=== PATIENT | male | born 1970 | race Caucasian/White ===

== ENCOUNTER 2016-11-30 16:27 | Observation (INO) | payer BC, OTHER ==
[~2016-11-30] VITALS: Ht 185.4 cm; Wt 145.5 kg
[~2016-11-30 16:27] MED LIST: DVN80125 PO; IBUP-1050 PO; LEVE750T PO; LMC/150 PO
[2016-11-30] MEDS ORDERED: SODIUM CHLORIDE 0.9% 1000ML 1,000 ML IV ONE (16:58)
[2016-11-30] MEDS ORDERED: SODIUM CHLORIDE 0.9% 1000ML 1,000 ML IV STA (16:58)
[2016-11-30] MEDS ORDERED: KETOROLAC TROMETHAMINE 30 MG/ML VIAL IV STA (16:58)
--- NOTE | 2016-11-30 17:04 | EMERGENCY ROOM VISIT NOTE ---
History Report prepared by Cathleen: Stewart Archer Under the Supervision of: Dr. Russel Sánchez M.D. First contact with patient: 16:51 Chief Complaint: ILLNESS Stated Complaint: COUGH,CONGESTION History of Present Illness The patient is a 46 year old male who presents to the Emergency Room with complaints of persistent severe chest congestion for the past 3-4 days. The patient also complains of headache, neck pain, sore throat, generalized body aches, cough, and nausea. He denies fevers, ear pain or rhinorrhea, vomiting, diarrhea, or abdominal pain. The patient has been using an old inhaler from past respiratory infections, which does help. He did have a flu shot this year. The patient notes that he has had swelling of the bilateral legs for the past six months. He has a history of hypertension and seizures. His last seizure was over one year ago. He is on Keppra, Lamictal, and Effexor for seizures. The patient denies history of diabetes, heart disease, or chronic lung disease. He is s/p tonsillectomy. Source of History: patient Onset: 3-4 days ago Position: chest Symptom Intensity: severe Quality: other (congested) Timing: other (persistent) Associated Symptoms: + cough, + headache, + nausea, + neck pain, + sorethroat, No abdominal pain, No diarrhea, No fevers, No vomiting Review of Systems See HPI for pertinent positives & negatives. A total of 10 systems reviewed and were otherwise negative. Past Medical & Surgical Medical Problems: (1) ASTHMA, UNSPECIFIED (2) BIPOLAR DISORDER, UNSPECIFIED (3) Epilepsy (4) HTN (hypertension) (5) Sinus pause (6) Syncope Old medical records were reviewed. Nurse's notes were reviewed and I agree with. Family History FH: heart disease FH: kidney disease Social History Smoking Status: Never Smoker Alcohol Use: none Drug Use: none Marital Status: Housing Status: lives with family Occupation Status: employed Current/Historical Medications Scheduled Cyclosporine (Ophth) (Restasis), 1 DROP OPB BID Lamotrigine (Lamictal), 300 MG PO BID Levetiracetam (Keppra), 750 MG PO BID Ropinirole HCl (Ropinirole HCl), 0.25 MG PO HS Valsartan/Hctz (Diovan Hct 160MG/12.5MG), 1 TAB PO QAM Venlafaxine Hcl (Effexor Extended Rel), 75 MG PO HS Scheduled PRN Albuterol (Ventolin Hfa), 2 PUFFS INH UD PRN for Asthma Symptoms Ibuprofen (Advil), 400-600 MG PO Q4H PRN for Pain Ondansetron (Ondansetron HCl), 4-8 MG PO TID PRN for Nausea Allergies Coded Allergies: Promethazine (Unverified Allergy, Unknown, I WILL , 06/10/16) Valproic Acid (Verified Allergy, Unknown, aggression, 06/10/16) Physical Exam Vital Signs Date Time Temp Pulse Resp B/P Pulse Ox O2 Delivery O2 Flow Rate FiO2 11/30/16 18:08 90 16 105/60 95 Room Air 11/30/16 17:31 92 17 106/58 98 Room Air 11/30/16 17:30 89 11/30/16 16:33 37.5 95 20 128/81 93 Room Air Physical Exam General: Non ill appearing middle aged male in no acute distress, breathing comfortably on room air. Normal speech HEENT: Normal cephalic atraumatic. Pupils are equal round and reactive to light. Extraocular movements are intact. Oropharynx is pink with moist mucous membranes. No swelling of the mouth lips or tongue. Neck: Supple with a midline trachea. No meningeal signs or stiffness, no JVD or bruits. No Stridor. Chest: Clear to auscultation bilaterally. No wheezes or rhonchi. No increased work of breathing. Occasional deep hacking cough. Heart: regular rate and rhythm. Abdomen: Soft nontender, nondistended without rebound guarding or rigidity. Extremities: No cyanosis or clubbing. No calf tenderness or assymetry. Trace pedal edema bilaterally. Spine/Back. Non tender to palpation. No CVA tenderness Skin: Good turgor without rashes. Neurologic exam: Cranial nerves two through 12 are intact. Motor and sensation are intact and symmetrical throughout. Medical Decision & Procedures ER Provider Diagnostic Interpretation: X-ray results as stated below per interpretation by me and the radiologist: CHEST ONE VIEW PORTABLE HISTORY: Atypical CHEST PAIN COMPARISON: Chest 06/10/2016. FINDINGS: The heart remains mildly enlarged. Mild prominence of the interstitial markings, unchanged. No new focal lung consolidations. No evidence for pulmonary edema. No pleural effusions. No pneumothorax. IMPRESSION: No significant change compared to the prior study. No acute process. Electronically signed by: Melecio Stein M.D. 11/30/2016 6:01 PM Dictated Date/Time: 11/30/2016 6:00 PM Laboratory Results 11/30/16 17:15 Red Blood Count 4.70, Mean Corpuscular Volume 90.0, Mean Corpuscular Hemoglobin 31.1, Mean Corpuscular Hemoglobin Concent 34.5, Mean Platelet Volume 8.8, Neutrophils (%) (Auto) 67.4, Lymphocytes (%) (Auto) 18.2, Monocytes (%) (Auto) 12.7, Eosinophils (%) (Auto) 1.3, Basophils (%) (Auto) 0.2, Neutrophils # (Auto ) 5.63, Lymphocytes # (Auto) 1.52, Monocytes # (Auto) 1.06, Eosinophils # (Auto ) 0.11, Basophils # (Auto) 0.02 11/30/16 17:15 Test 11/30/16 17:15 11/30/16 17:24 11/30/16 18:00 White Blood Count 8.36 K/uL (4.8-10.8) Red Blood Count 4.70 M/uL (4.7-6.1) Hemoglobin 14.6 g/dL (14.0-18.0) Hematocrit 42.3 % (42-52) Mean Corpuscular Volume 90.0 fL (80-100) Mean Corpuscular Hemoglobin 31.1 pg (25-34) Mean Corpuscular Hemoglobin Concent 34.5 g/dl (32-36) Platelet Count 149 K/uL (130-400) Mean Platelet Volume 8.8 fL (7.4-10.4) Neutrophils (%) (Auto) 67.4 % Lymphocytes (%) (Auto) 18.2 % Monocytes (%) (Auto) 12.7 % Eosinophils (%) (Auto) 1.3 % Basophils (%) (Auto) 0.2 % Neutrophils # (Auto) 5.63 K/uL (1.4-6.5) Lymphocytes # (Auto) 1.52 K/uL (1.2-3.4) Monocytes # (Auto) 1.06 K/uL (0.11-0.59) Eosinophils # (Auto) 0.11 K/uL (0-0.5) Basophils # (Auto) 0.02 K/uL (0-0.2) RDW Standard Deviation 42.0 fL (36.4-46.3) RDW Coefficient of Variation 12.8 % (11.5-14.5) Immature Granulocyte % (Auto) 0.2 % Immature Granulocyte # (Auto) 0.02 K/uL (0.00-0.02) Anion Gap 4.0 mmol/L (3-11) Est Creatinine Clear Calc Drug Dose 127.1 ml/min Estimated GFR () 93.5 Estimated GFR (Non- 80.6 BUN/Creatinine Ratio 9.4 (10-20) Calcium Level 9.0 mg/dl (8.5-10.1) Total Bilirubin 0.8 mg/dl (0.2-1) Direct Bilirubin 0.1 mg/dl (0-0.2) Aspartate Amino Transf (AST/SGOT) 20 U/L (15-37) Alanine Aminotransferase (ALT/SGPT) 34 U/L (12-78) Alkaline Phosphatase 98 U/L (45-117) Total Protein 7.6 gm/dl (6.4-8.2) Albumin 4.1 gm/dl (3.4-5.0) Lipase 141 U/L (73-393) Lyme Disease IgG Antibody NEG (NEG) Lyme Disease IgM Antibody NEG (NEG) Bedside Troponin I 0.010 ng/ml (0-0.045) SP-Cmm-W-Type Natriuretic Peptide 50 pg/ml (0-450) Influenza Type A (RT-PCR) Neg for Influ A (NEG) Influenza Type A Antigen Neg for Influ A (NEG) Influenza Type B Antigen Neg for Influ B (NEG) Influenza Type B (RT-PCR) Neg for Influ B (NEG) Laboratory studies as stated above per my review. Medications Administered Medications (Trade) Dose Ordered Sig/Magnus Route Start Time Stop Time Status Last Admin Dose Admin Sodium Chloride 1,000 ml @ 999 mls/hr Q1H1M STAT IV 11/30/16 16:58 11/30/16 17:58 DC 11/30/16 17:19 999 MLS/HR Sodium Chloride (Nss 1000ml) 1,000 ml @ 200 mls/hr Q5H ONCE IV 11/30/16 16:58 4/23/17 21:00 DC 11/30/16 18:20 200 MLS/HR ECG Indication: chest pain Rate (beats per minute): 90 Rhythm: normal sinus Findings: no acute ischemic change, no ectopy, other (normal intervals) Comparison ECG Date: 2015 Change: no significant change ED Course 1652: Past medical records reviewed. The patient was evaluated in room B5, and a complete history and physical examination were performed. 1658: Toradol 30 mg IV, NSS 1000 ml @ 200 mls/hr, NSS 1000 ml @ 999 mls/hr. 1719: Responded to code blue. The patient reportedly displayed seizure-like activity, although he was not seizing when I went into the room. The patient did not appear to be post-ictal. Vasovagal event suspected. The patient had a bradycardic / brief asystolic event on career services officer. The patient is feeling better. 1728: Repeat EKG: Normal sinus at 90, no acute ischemia or ectopy, no significant change from first EKG. 1750: The patient is resting comfortably, using his cell phone. 1810: Discussed the case with Dr. Flores, [facility] Hospitalist. The patient will be evaluated. 181: Updated the patient. 1830: Checked on the patient. Dr. Flores is at bedside. Medical Decision Differential diagnosis includes influenza, bronchitis, pneumonia, CHF, cardiac disease, electrolyte or metabolic abnormality. This patient comes in as described above. He was placed on career services officer in room B5. He has had influenza and URI type symptoms. He looks well on exam. IV access established and he was hydrated normal saline. Multiple blood testing was obtained. About 2 minutes after getting blood work drawn, he started feeling nauseated and lightheaded. He then passed out and had seizure- like spells. He does have a history of seizures, the nurses came and got me when I went in he was awake and said he was feeling better. He was not postictal and he did not bite his tongue. A repeated EKG looked normal without ischemic changes. There is no change compared to EKG #1. I did review the monitor and it looks like he was bradycardic but then was asystolic briefly. He did not require any CPR or meds. I suspect this was a vasovagal episode. He had a similar episode once before but given the duration of asystole, I do think he needs to be observed for further treatment and evaluation his cardiac enzymes are unremarkable as electrolytes are unremarkable. I did add a Lyme titer which is pending. The patient was seen by Dr. Flores and will be admitted for further treatment and evaluation. Consults Time Called: 1800 Consulting Physician: Dr. Flores [facility] Hospitalist. Returned Call: [phone]: Discussed the case with Dr. Flores [facility]. The patient will be evaluated. Impression Primary Impression: Syncope Additional Impressions: Flu-like symptoms Vasovagal episode Scribe Attestation The scribe's documentation has been prepared under my direction and personally reviewed by me in its entirety. I confirm that the note above accurately reflects all work, treatment, procedures, and medical decision making performed by me. Departure Information Dispostion Being Evaluated By Hospitalist Referrals Anthony Flores Jr,D.O. (PCP) Patient Instructions My [facility] Health Problem Qualifiers
[2016-11-30] MEDS ORDERED: LORAZEPAM 2 MG/ML 1 ML VIAL ONE (17:26)
[2016-11-30 17:36] LABS: BASO % 0.2 %; BASO ABS # 0.02 K/uL (0-0.2); COMPLETE YES; EOS % 1.3 %; HEMATOCRIT 42.3 % (42-52); IG% 0.2 %; LYMPH % 18.2 %; LYMPH ABS # 1.52 K/uL (1.2-3.4); MEAN CORPUSCULAR HEMOGLOBIN 31.1 pg (25-34); MEAN CORPUSCULAR HGB CONC 34.5 g/dl (32-36); MEAN PLATELET VOLUME 8.8 fL (7.4-10.4); MONO % 12.7 %; NEUT % 67.4 %; PLATELET COUNT 149 K/uL (130-400); WHITE BLOOD COUNT 8.36 K/uL (4.8-10.8)
[2016-11-30 17:44] LABS: POINT OF CARE TROPONIN I 0.01 ng/ml (0-0.045)
[2016-11-30] MEDS ORDERED: RQP25 PO (17:52)
[2016-11-30] MEDS ORDERED: LAMO150T32 PO (17:52)
[2016-11-30] MEDS ORDERED: VALS160T58 PO (17:52)
[2016-11-30 17:53] LABS: BUN/CREATININE RATIO 9.4 (10-20); CREATININE 1.1 mg/dl (0.60-1.40); POTASSIUM 3.7 mmol/L (3.5-5.1)
[2016-11-30] MEDS ORDERED: IBUP-1277 PO (17:53)
[2016-11-30] MEDS ORDERED: PRVHFAIN INH (17:56)
--- NOTE | 2016-11-30 18:04 | DIAGNOSTIC IMAGING REPORT ---
CHEST ONE VIEW PORTABLE HISTORY: Atypical CHEST PAIN COMPARISON: Chest 06/10/2016. FINDINGS: The heart remains mildly enlarged. Mild prominence of the interstitial markings, unchanged. No new focal lung consolidations. No evidence for pulmonary edema. No pleural effusions. No pneumothorax. IMPRESSION: No significant change compared to the prior study. No acute process. Electronically signed by: Melecio Stein M.D. 11/30/2016 6:01 PM Dictated Date/Time: 11/30/2016 6:00 PM
[2016-11-30] MEDS ORDERED: ACETAMINOPHEN 325 MG TAB PO PRN (18:30)
[2016-11-30] MEDS ORDERED: IV FLUIDS COMPLETED PRN (18:30)
[2016-11-30] MEDS ORDERED: ONDANSETRON INJ 2 MG/ML 2 ML VIAL IV PRN (18:30)
[2016-11-30 18:40] LABS: LYME DISEASE AB IGG NEG (NEG); LYME DISEASE AB IGM NEG (NEG)
--- NOTE | 2016-11-30 18:52 | History and Physical ---
History & Physical Date & Time of Service: Nov 30, 2016 at 18:37 Chief Complaint: Cough,Congestion Primary Care Physician: Anthony Flores Jr,D.O. History of Present Illness Source: patient, family (), hospital records 46 yo male who came to the ED today with some flu like symptoms of URI, non- productive cough, chills, poor appetite and lethargy. He had an IV placed after phlebotomy and when they flushed his IV he started to experience severe alternating hot and cold sensations from his head to his feet, had some diaphoresis and felt light headed. After several seconds of these symptoms he lost consciousness. He was still breathing and had a pulse. However, on the monitor strip he had several long pauses of several seconds duration and some PVC's. After approximately one minute he regained consciousness and was fully aware of his surroundings. He denied chest pain or palpitations. His EKG after his syncopal event showed no ST or TW changes. Electrolytes and CBC were unremarkable. CXR was normal. Lyme and rapid flu were sent and still pending. He has had syncope in the past that was triggered my a muscular injection at his PCP office, certainly described like vasovagal episode similar to this presentation. He also has a history of frequent PVC's and has followed with Dr. Orantes with [facility] cardiology. He had a stress test a few years ago that was normal. H/o epilepsy, no recent seizures and he and his who was present during the syncope both agree that this was not similar to his seizures in any way. Past Medical/Surgical History Medical Problems: (1) ASTHMA, UNSPECIFIED Status: Resolved (2) BIPOLAR DISORDER, UNSPECIFIED Status: Resolved (3) Epilepsy Status: Chronic (4) HTN (hypertension) Status: Chronic (5) Syncope Status: Resolved Family History FH: heart disease FH: kidney disease grandfather had a stroke grandfather had Alzheimer's no family history of MO, arrhythmias, sudden Social History Smoking Status: Never Smoker Drug Use: none Marital Status: Housing status: lives with family Occupational Status: employed Multi-Drug Resistant Organisms History of MDRO: No Allergies Coded Allergies: Promethazine (Unverified Allergy, Unknown, I WILL , 06/10/16) Valproic Acid (Verified Allergy, Unknown, aggression, 06/10/16) Home Medications Scheduled Cyclosporine (Ophth) (Restasis), 1 DROP OPB BID Lamotrigine (Lamictal), 300 MG PO BID Levetiracetam (Keppra), 750 MG PO BID Ropinirole HCl (Ropinirole HCl), 0.25 MG PO HS Valsartan/Hctz (Diovan Hct 160MG/12.5MG), 1 TAB PO QAM Venlafaxine Hcl (Effexor Extended Rel), 75 MG PO HS Scheduled PRN Albuterol (Ventolin Hfa), 2 PUFFS INH UD PRN for Asthma Symptoms Ibuprofen (Advil), 400-600 MG PO Q4H PRN for Pain Ondansetron (Ondansetron HCl), 4-8 MG PO TID PRN for Nausea Review of Systems Constitutional: + chills, + fatigue, + fever, + sweats, + weakness, No weight loss Eyes: No diplopia, No discharge, No eye pain, No problem reported, No redness, No worsening of vision ENT: + nasal symptoms, No dental problems, No hearing loss, No sore throat, No tinnitus, No trouble swallowing, No unusual epistaxis Respiratory: + cough, No dyspnea at rest, No dyspnea on exertion, No shortness of breath, No sputum, No wheezing Cardiovascular: + problem reported (syncope), No PND, No chest pain, No claudication, No edema, No orthopnea, No palpitations Abdomen: + problem reported (poor appetite), No GI bleeding, No constipation, No diarrhea, No nausea, No pain, No vomiting Musculoskeletal: No calf pain, No joint pain, No muscle pain, No problem reported, No swelling Genitourinary - Male: No dysuria, No hematuria, No urinary frequency, No urinary urgency Psychiatric: No anhedonism, No anxiety, No depression symptoms, No insomnia, No problem reported, No substance abuse Endocrine: No excessive thirst, No excessive urination, No fatigue, No problem reported Hematologic / Lymphatic: No abnormal bleeding/bruising, No clotting problems, No night sweats, No problem reported, No swollen lymph nodes Integumentary: No bleeding, No color change, No itch, No new/changing skin lesions, No problem reported, No rash Allergic / Immunologic: No environmental allergies, No food allergies, No frequent infections, No hives, No pet sensitivities, No poor healing, No problem reported, No prolonged convalescence, No seasonal allergies Physical Exam Vital Signs Date Time Temp Pulse Resp B/P Pulse Ox O2 Delivery O2 Flow Rate FiO2 11/30/16 18:08 90 16 105/60 95 Room Air 11/30/16 17:31 92 17 106/58 98 Room Air 11/30/16 17:30 89 11/30/16 16:33 37.5 95 20 128/81 93 Room Air General Appearance: no apparent distress, + obese Head: normocephalic, atraumatic Eyes: normal inspection, EOMI, sclerae normal ENT: normal ENT inspection, hearing grossly normal, pharynx normal Neck: supple, no adenopathy, no JVD, trachea midline Respiratory/Chest: chest non-tender, lungs clear, normal breath sounds, no respiratory distress, no accessory muscle use Cardiovascular: regular rate, rhythm, no edema, no gallop, no JVD, no murmur, normal peripheral pulses Abdomen/GI: normal bowel sounds, non tender, soft, no organomegaly Back: normal inspection, no CVA tenderness, no muscle spasm, normal range of motion Extremities/Musculoskelatal: normal inspection, no calf tenderness, normal capillary refill, no pedal edema, normal range of motion, pelvis stable Neurologic/Psych: corporate executive II-XII nml as tested, no motor/sensory deficits, alert, normal mood/affect, normal reflexes, oriented x 3 Skin: normal color, warm/dry, no rash Lymphatic: no adenopathy Diagnostics Laboratory Results Results Past 24 Hours Test 11/30/16 17:15 11/30/16 17:24 11/30/16 18:00 Range/Units White Blood Count 8.36 4.8-10.8 K/uL Red Blood Count 4.70 4.7-6.1 M/uL Hemoglobin 14.6 14.0-18.0 g/dL Hematocrit 42.3 42-52 % Mean Corpuscular Volume 90.0 80-100 fL Mean Corpuscular Hemoglobin 31.1 25-34 pg Mean Corpuscular Hemoglobin Concent 34.5 32-36 g/dl Platelet Count 149 130-400 K/uL Mean Platelet Volume 8.8 7.4-10.4 fL Neutrophils (%) (Auto) 67.4 % Lymphocytes (%) (Auto) 18.2 % Monocytes (%) (Auto) 12.7 % Eosinophils (%) (Auto) 1.3 % Basophils (%) (Auto) 0.2 % Neutrophils # (Auto) 5.63 1.4-6.5 K/uL Lymphocytes # (Auto) 1.52 1.2-3.4 K/uL Monocytes # (Auto) 1.06 0.11-0.59 K/uL Eosinophils # (Auto) 0.11 0-0.5 K/uL Basophils # (Auto) 0.02 0-0.2 K/uL RDW Standard Deviation 42.0 36.4-46.3 fL RDW Coefficient of Variation 12.8 11.5-14.5 % Immature Granulocyte % (Auto) 0.2 % Immature Granulocyte # (Auto) 0.02 0.00-0.02 K/uL Sodium Level 138 136-145 mmol/L Potassium Level 3.7 3.5-5.1 mmol/L Chloride Level 100 98-107 mmol/L Carbon Dioxide Level 34 21-32 mmol/L Anion Gap 4.0 3-11 mmol/L Blood Urea Nitrogen 10 7-18 mg/dl Creatinine 1.10 0.60-1.40 mg/dl Est Creatinine Clear Calc Drug Dose 127.1 ml/min Estimated GFR () 93.5 Estimated GFR (Non- 80.6 BUN/Creatinine Ratio 9.4 10-20 Random Glucose 93 70-99 mg/dl Calcium Level 9.0 8.5-10.1 mg/dl Total Bilirubin 0.8 0.2-1 mg/dl Direct Bilirubin 0.1 0-0.2 mg/dl Aspartate Amino Transf (AST/SGOT) 20 15-37 U/L Alanine Aminotransferase (ALT/SGPT) 34 12-78 U/L Alkaline Phosphatase 98 45-117 U/L Total Protein 7.6 6.4-8.2 gm/dl Albumin 4.1 3.4-5.0 gm/dl Lipase 141 73-393 U/L Bedside Troponin I 0.010 0-0.045 ng/ml [id number]-[id number]-Type Natriuretic Peptide 50 0-450 pg/ml CXR normal Normal EKG Impression Assessment and Plan 46 yo male who presented with mild flu like symptoms, had a syncopal event with sinus pauses shortly after an IV flush - Syncope: preceded by hot and cold and diaphoresis, showed long sinus pauses on monitor when he was down observe on telemetry, consult cardiology for their opinion, could consider echo tomorrow if cardiology desires certainly seems to be vaso-vagal in nature with symptoms and they occurred after IV flush and he has a h/o syncope after IM injection f/u Lyme screen/titer - URI: follow up rapid flu, CXR clear, supportive measures - Epilepsy: no seizure activity, continue Lamictal and Keppra - HTN: stable, Diovan/HCT - DVT prophylaxis: early ambulation, just here for observation Level of Care Telemetry Resuscitation Status FULL RESUSCITATION VTE Prophylaxis VTE Risk Assessment Done? Y/N: Yes Risk Level: Low Additional Copies To Anthony Flores Jr,D.O.
[2016-11-30 19:35] VITALS: BP 118/72; PULSE 86; TEMP 37.1; O2SAT 94; Ht 185.4 cm; Wt 145.5 kg
[2016-11-30 20:00] VITALS: O2SAT 94
[2016-11-30 20:07] LABS: INFLUENZA A PCR Neg for Influ A (NEG)
[2016-11-30 20:08] LABS: INFLUENZA B PCR Neg for Influ B (NEG)
[2016-11-30] MEDS: LEVETIRACETAM 250 MG TAB PO SCH (20:45)
[2016-11-30] MEDS ORDERED: ROPINIROLE HCL 0.25 MG TAB PO SCH (21:00)
[2016-11-30] MEDS ORDERED: IBUPROFEN 600 MG TAB PO PRN (21:00)
[2016-11-30] MEDS ORDERED: VENLAFAXINE HCL XR 75 MG CAPXR PO SCH (21:00)
[2016-12-01] VITALS: BP 110/67; PULSE 94; TEMP 37.2; O2SAT 93
[2016-12-01 03:21] VITALS: BP 94/48; PULSE 77; TEMP 36.8; O2SAT 94
[2016-12-01 04:00] VITALS: O2SAT 94
[2016-12-01 07:21] VITALS: BP 110/71; PULSE 83; TEMP 36.7; O2SAT 95
[2016-12-01] MEDS: LEVETIRACETAM 250 MG TAB PO SCH (07:33)
[2016-12-01 07:51] LABS: BASO % 0.2 %; BASO ABS # 0.02 K/uL (0-0.2); COMPLETE YES; EOS % 1.4 %; HEMATOCRIT 42.9 % (42-52); IG% 0.1 %; LYMPH % 24.6 %; LYMPH ABS # 2.14 K/uL (1.2-3.4); MEAN CELL VOLUME 90.3 fL (80-100); MEAN CORPUSCULAR HEMOGLOBIN 30.3 pg (25-34); MEAN CORPUSCULAR HGB CONC 33.6 g/dl (32-36); MEAN PLATELET VOLUME 8.7 fL (7.4-10.4); NEUT % 58.7 %; PLATELET COUNT 151 K/uL (130-400); RED BLOOD COUNT 4.75 M/uL (4.7-6.1); WHITE BLOOD COUNT 8.71 K/uL (4.8-10.8)
[2016-12-01 08:22] LABS: BUN/CREATININE RATIO 9.4 (10-20); CREATININE 1.1 mg/dl (0.60-1.40); POTASSIUM 3.6 mmol/L (3.5-5.1)
[2016-12-01 08:46] LABS: CALCIUM 8.8 mg/dl (8.5-10.1)
[2016-12-01] MEDS ORDERED: VALSARTAN 80 MG TAB PO SCH (09:00)
[2016-12-01] MEDS ORDERED: VALSARTAN/HCTZ 160/12.5 MG TAB PO SCH (09:00)
[2016-12-01] MEDS ORDERED: HYDROCHLOROTHIAZIDE 25 MG TAB PO SCH (09:00)
--- NOTE | 2016-12-01 10:17 | CARDIOLOGY CONSULTATION ---
DATE OF CONSULTATION: 12/01/2016 DATE OF CONSULTATION: 12/01/2016. [facility] REASON FOR CONSULTATION: Syncope. HISTORY OF PRESENT ILLNESS: The patient is a 46-year-old male with history of hypertension and PVCs for which he has seen Dr. Orantes in the past. He actually just saw Dr. Orantes in the clinic several weeks ago and things were going fine. He also has a history of a seizure disorder that was diagnosed approximately 4 years ago. He is being followed by neurology. The patient has had a cough due to sinusitis and thought he might have a sinus infection. He came into the Emergency Department and while there he had an IV placed and soon after he got a warm flushed feeling and became lightheaded and had a syncopal event. He had a prolonged episode of asystole during these events, which were of quite concern to the Emergency Department staff. He was therefore admitted to the telemetry floor. It should be noted that the patient's witnessed the event and has witnessed the patient's seizures in the past. This event was definitely different from his seizures and did not have a postictal stage. It should also be noted that several months ago the patient was in his primary care physician's office and got an injection with the same result and a syncopal episode. I have reviewed the patient's telemetry and I believe that although this is a prolonged episode this is most likely due to vasovagal event. His EKG is within normal limits and shows no evidence of complete heart block. His Lyme's titer is negative. Cardiac markers are negative. He had a slightly low potassium, but not low enough to cause this sort of event. He feels well today and has no complaints. He actually is asking to go home. ALLERGIES: PROMETHAZINE, VALPROIC ACID. PAST MEDICAL HISTORY: As outlined in history of chief complaint. The patient has a seizure disorder and according to the patient, he had a positive EEG as part of the diagnosis of a seizure disorder. He was treated for some mild essential hypertension and had a complete workup by Dr. Orantes several years ago for his PVCs including a negative stress test. SOCIAL HISTORY: He is a nonsmoker, he lives with his . FAMILY MEDICAL HISTORY: Noncontributory. REVIEW OF SYSTEMS: A 10-point review of systems is negative except for the history of chief complaint. PHYSICAL EXAMINATION: GENERAL: He is alert and oriented in no acute distress. VITAL SIGNS: Blood pressure is 110/70, pulse is regular at 83. He is afebrile. HEAD, EYES, EARS, NOSE, AND THROAT: He is normocephalic. Pupils are equal and reactive to light. Extraocular muscles are intact bilaterally. NECK: The neck veins are flat. Carotids have good upstrokes bilaterally without bruits. Thyroid is nonpalpable. RESPIRATORY: Breath sounds equal bilaterally and clear to auscultation. CARDIOVASCULAR: Heart has a regular rhythm. Normal S1, S2. No S3, S4. No cardiac rubs or murmurs. GASTROINTESTINAL: Abdomen is soft, nontender without organomegaly. EXTREMITIES: Free of edema, digit clubbing, or cyanosis. NEUROLOGIC: Grossly intact. SKIN: Warm to touch. LYMPH NODES: Negative to palpation. LABORATORY DATA: Per the history of chief complaint. In addition, I have reviewed the patient's entire telemetry and he has had no other significant bradycardic events or heart block. IMPRESSION: Vasovagal syncope. RECOMMENDATIONS: I think the patient can be discharged to outpatient followup with Dr. Orantes in 1-2 weeks. I instructed the patient and his if he has additional events then they will contact our office or come back to the Emergency Department. I will arrange followup with Dr. Orantes.
--- NOTE | 2016-12-01 10:26 | Discharge Instructions ---
Discharge Instructions Date of Service Dec 01, 2016. Admission Reason for Admission: Sinus Pause, Syncope Discharge Discharge Diagnosis / Problem: Syncope Discharge Goals Goal(s): Decrease discomfort, Improve function, Increase independence, Improve disease control, Improve nutritional status, Learn about illness, Diagnostic testing, Therapeutic intervention, Prevent Disease Progression, Specific goals Activity Recommendations Activity Limitations: resume your previous activity . Instructions / Follow-Up Instructions / Follow-Up you have Syncope, evaluation so far is unremarkable - you need to follow up with your primary care physician in 1 week, - you need to follow up with computer systems software architect as instructed - take medication as instructed, never overdose or any misuse, or take with alcohol, because misuse of medicine may cause organ damage or , call your primary care physician if have questions of medicaitons. - call your primary care physician OR go to local emergency room if has any fever/chill, chest pain, shortness of breathing, nausea/vomiting/abdominal pain , facial droop/slurry speech/local weakness, or if has any questions. - fall precaution - diet as instructed - you need to follow up with your subspecialist - you should understand that it is important to follow up the above instruction , and "not following the above instruction" may cause delayed or missed care of your medical conditions which may cause permanent organ damage and even . Current Hospital Diet Patient's current hospital diet: Regular Diet Discharge Diet Recommended Diet: AHA Diet (Heart Healthy), Low Sodium Diet (2gm Na) Pending Studies Studies pending at discharge: no Laboratory Results Meds Administered (Past 24Hrs) Medications (Trade) Dose Ordered Sig/Magnus Route Start Time Stop Time Status Last Admin Dose Admin Sodium Chloride 1,000 ml @ 999 mls/hr Q1H1M STAT IV 11/30/16 16:58 11/30/16 17:58 DC 11/30/16 17:19 999 MLS/HR Sodium Chloride (Nss 1000ml) 1,000 ml @ 200 mls/hr Q5H ONCE IV 11/30/16 16:58 11/30/16 21:00 DC 11/30/16 18:20 200 MLS/HR Lamotrigine (Lamictal Tab) 300 mg BID PO 11/30/16 21:00 12/30/16 20:59 12/01/16 07:34 300 MG Levetiracetam (Keppra Tab) 750 mg BID PO 11/30/16 21:00 12/30/16 20:59 12/01/16 07:33 750 MG Ropinirole HCl (Requip Tab) 0.25 mg HS PO 11/30/16 21:00 12/30/16 20:59 11/30/16 20:45 0.25 MG Venlafaxine HCl (effeXOR EXTENDED REL CAP) 75 mg HS PO 11/30/16 21:00 12/30/16 20:59 11/30/16 20:45 75 MG Valsartan (Diovan Tab) 160 mg QAM PO 12/01/16 09:00 12/31/16 08:59 12/01/16 07:34 160 MG Hydrochlorothiazide (Hydrochlorothiazide Tab) 12.5 mg QAM PO 12/01/16 09:00 12/31/16 08:59 12/01/16 07:34 12.5 MG Ibuprofen (Motrin Tab) 600 mg Q8H PRN PO 11/30/16 21:00 12/30/16 20:59 11/30/16 21:40 600 MG Medical Emergencies . Who to Call and When: Medical Emergencies: If at any time you feel your situation is an emergency, please call 911 immediately. . Non-Emergent Contact Non-Emergency issues call your: Primary Care Provider, Document Examiner . . "Provider Documentation" section prepared by Hill Dennis. . VTE Core Measure Inpt VTE Proph given/why not?: SCD's
[2016-12-01] MEDS ORDERED: AZITTAB PO (10:45)
[2016-12-01 10:47] VITALS: BP 110/71; PULSE 83; TEMP 36.7; O2SAT 95
--- NOTE | 2016-12-01 11:45 | Discharge Summary ---
Discharge Summary Date of Service Dec 01, 2016. Discharge Summary Admission Date: Nov 30, 2016 at 18:20 Discharge Date: Dec 01, 2016 Discharge Disposition: Home Principal Diagnosis: Syncope Problems/Secondary Diagnoses: Bronchitis Procedures: No Consultations: Public Administration Professor Medication Reconciliation New Medications: Azithromycin (Zithromax Z-Morgan) 250 Mg Tab 1 PKT PO UD for 5 Days, #6 TAB Continued Medications: Albuterol (Ventolin Hfa) 60 Puffs/5400 Mcg Aers 2 PUFFS INH UD PRN for Asthma Symptoms Cyclosporine (Ophth) (Restasis) 0.05 % Emu 1 DROP OPB BID Ibuprofen (Advil) 200 Mg Tab 400-600 MG PO Q4H PRN for Pain, TAB Lamotrigine (Lamictal) 150 Mg Tab 300 MG PO BID Levetiracetam (Keppra) 750 Mg Tab 750 MG PO BID Ondansetron (Ondansetron HCl) 4 Mg Tab 4-8 MG PO TID PRN for Nausea Ropinirole HCl (Ropinirole HCl) 0.25 Mg Tab 0.25 MG PO HS TAKE THIS MEDICATION 1-2 HOURS BEFORE BEDTIME Valsartan/Hctz (Diovan Hct 160MG/12.5MG) 1 Tab Tab 1 TAB PO QAM, TAB Venlafaxine Hcl (Effexor Extended Rel) 75 Mg Capcr 75 MG PO HS TAKE THIS MEDICATION WITH FOOD Discharge Exam Still has some dry cough, no complaining, has been up and walk, no dizziness Review of Systems: Constitutional: No chills, No fatigue, No fever, No problem reported, No sweats, No weakness, No weight loss Eyes: No diplopia, No discharge, No eye pain, No problem reported, No redness, No worsening of vision ENT: No dental problems, No hearing loss, No nasal symptoms, No problem reported, No sore throat, No tinnitus, No trouble swallowing, No unusual epistaxis Respiratory: No cough, No dyspnea at rest, No dyspnea on exertion, No hemoptysis, No problem reported, No shortness of breath, No sputum, No wheezing Cardiovascular: No PND, No chest pain, No claudication, No edema, No orthopnea, No palpitations, No problem reported Abdomen: No GI bleeding, No constipation, No diarrhea, No nausea, No pain, No problem reported, No vomiting Neurologic: No balance problems, No memory loss, No numbness/tingling, No paralysis, No problem reported, No vertigo, No weakness Endocrine: No excessive thirst, No excessive urination, No fatigue, No problem reported Hematologic / Lymphatic: No abnormal bleeding/bruising, No clotting problems , No night sweats, No problem reported, No swollen lymph nodes Integumentary: No bleeding, No color change, No itch, No new/changing skin lesions, No problem reported, No rash Physical Exam: General Appearance: WD/WN, no apparent distress Eyes: normal inspection, PERRL ENT: normal ENT inspection, hearing grossly normal Neck: supple, no adenopathy Respiratory/Chest: chest non-tender, normal breath sounds, no respiratory distress, no accessory muscle use, + decreased breath sounds Cardiovascular: regular rate, rhythm, no edema, no gallop, no JVD Abdomen / GI: normal bowel sounds, non tender, soft Extremities: normal inspection, no calf tenderness, normal capillary refill , no pedal edema Neurologic/Psychiatric: music orchestrator II-XII nml as tested, no motor/sensory deficits , alert, normal mood/affect, normal reflexes Skin: normal color, warm/dry Hospital Course 46-year-old male with history of hypertension , seizure disorder that was diagnosed approximately 4 years ago. Prior to admission, patient has had a cough due to sinusitis and thought he might have a sinus infection. Patient came into the Emergency Department on 11/30/2016 and while there he had an IV placed and soon after he got a warm flushed feeling and became lightheaded, and had a syncopal event. He had a prolonged episode of asystole during these events, which were of quite concern to the Emergency Department staff. He was therefore admitted to the telemetry floor. Per report the patient's witnessed the event and has witnessed the patient' s seizures in the past. This event was definitely different from his seizures and did not have a postictal stage. Patient was In the telemetry cause of syncope , likely due to vasovagal event. EKG is within normal limits and shows no evidence of complete heart block. His Lyme's titer is negative. Cardiac markers are negative. Has been up and walk, cardiology saw him, patient was having hx of PVCs for which he has seen Dr. Orantes in the past. Cardiology clear him to go home He still cough, no smoking history, I give Z-Morgan medicine to go home, instructed to take [id number] Robitussin for cough as needed Instructions / Follow-Up you have Syncope, evaluation so far is unremarkable - you need to follow up with your primary care physician in 1 week, - you need to follow up with tin dipper as instructed - take medication as instructed, never overdose or any misuse, or take with alcohol, because misuse of medicine may cause organ damage or , call your primary care physician if have questions of medicaitons. - call your primary care physician OR go to local emergency room if has any fever/chill, chest pain, shortness of breathing, nausea/vomiting/abdominal pain , facial droop/slurry speech/local weakness, or if has any questions. - fall precaution - diet as instructed - you need to follow up with your subspecialist - you should understand that it is important to follow up the above instruction , and "not following the above instruction" may cause delayed or missed care of your medical conditions which may cause permanent organ damage and even . Total Time Spent: Less than 30 minutes This includes examination of the patient, discharge planning, medication reconciliation, and communication with other providers. Discharge Instructions Please refer to the electronic Patient Visit Report (Discharge Instructions) for additional information. Additional Copies To Vivek Orantes D.O.; Anthony Flores Jr,Mk.O.
== END 2016-12-01 11:20 | disposition home or self-care (01) ==
LOC: ENRESERVTM → ENRESERVDT → C.EDB 16:29 → C.2T 18:20
PROVIDERS: ADMIT Internal Medicine; ATTEND Hospitalist
DX: R55 Syncope and collapse (principal); J40 Bronchitis, not specified as acute or chronic; I10 Essential (primary) hypertension; G40.909 Epilepsy, unspecified, not intractable, without status epilepticus; J45.909 Unspecified asthma, uncomplicated; Z82.49 Family history of ischemic heart disease and other diseases of the circulatory system; Z84.1 Family history of disorders of kidney and ureter; Z82.3 Family history of stroke; Z81.8 Family history of other mental and behavioral disorders

== ENCOUNTER → 2017-02-16 | Outpatient (CLI) | payer BC, OTHER ==
[~2017-02-16] MED LIST changes: +CMP/10 PO; +CTF50 PO; +CYCL0.052 OPB; -DVN80125 PO; +EFFSR75 PO; +HYDR25TA5 PO; -IBUP-1050 PO; +IBUP-1277 PO; +LAMO150T32 PO; +LAMO1TAB79 PO; +LEVE1TAB27 PO; -LMC/150 PO; +ONDA4TAB9 PO; +PRVHFAIN INH; +ROPI0.5T PO; +RQP25 PO; +VALS-58 PO; +VALS160T58 PO
[2017-02-16 21:55] LABS: BASO % 0.2 %; BASO ABS # 0.02 K/uL (0-0.2); COMPLETE YES; EOS % 0.2 %; HEMATOCRIT 44.6 % (42-52); IG% 0.2 %; LYMPH % 38.7 %; LYMPH ABS # 3.54 K/uL (1.2-3.4); MEAN CELL VOLUME 88.7 fL (80-100); MEAN CORPUSCULAR HEMOGLOBIN 29.2 pg (25-34); MEAN PLATELET VOLUME 8.5 fL (7.4-10.4); MONO % 8.3 %; NEUT % 52.4 %; PLATELET COUNT 201 K/uL (130-400); RED BLOOD COUNT 5.03 M/uL (4.7-6.1); WHITE BLOOD COUNT 9.14 K/uL (4.8-10.8)
[2017-02-16 22:16] LABS: ALT/SGPT 38 U/L (12-78); BLOOD UREA NITROGEN 15 mg/dl (7-18); BUN/CREATININE RATIO 11.5 (10-20); CALCIUM 9.6 mg/dl (8.5-10.1); CARBON DIOXIDE 35 mmol/L (21-32); CHLORIDE 101 mmol/L (98-107); GLUCOSE 102 mg/dl (70-99); POTASSIUM 3.7 mmol/L (3.5-5.1); SODIUM 141 mmol/L (136-145)
[2017-02-16 22:19] LABS: ALKALINE PHOSPHATASE 87 U/L (45-117); AST/SGOT 20 U/L (15-37)
== END | disposition home or self-care (01) ==
LOC: C.LAB 21:31
PROVIDERS: ATTEND Psychiatry & Neurology Neurology
DX: G40.909 Epilepsy, unspecified, not intractable, without status epilepticus (principal); Z51.81 Encounter for therapeutic drug level monitoring

== ENCOUNTER 2017-02-25 17:43 | Emergency (ER) | payer BC, OTHER ==
[~2017-02-25] VITALS: Ht 185.4 cm; Wt 146.4 kg
[~2017-02-25 17:43] MED LIST changes: -CMP/10 PO; -CTF50 PO; -CYCL0.052 OPB; -EFFSR75 PO; -HYDR25TA5 PO; -LAMO1TAB79 PO; -LEVE1TAB27 PO; -ONDA4TAB9 PO; -ROPI0.5T PO; -VALS-58 PO
[2017-02-25] MEDS ORDERED: CYCL0.052 OPB (17:52)
[2017-02-25] MEDS ORDERED: EFFSR75 PO (17:52)
[2017-02-25] MEDS ORDERED: ONDA4TAB9 PO (17:52)
[2017-02-25 17:59] VITALS: TEMP 36.7; Ht 185.4 cm; Wt 146.4 kg
[2017-02-25] MEDS ORDERED: PROPARACAINE HCL 0.5% OP SOLN 15 ML BTL OP STA (18:06)
[2017-02-25] MEDS ORDERED: HYDR25TA5 PO (18:27)
[2017-02-25] MEDS ORDERED: LAMO1TAB79 PO (18:27)
[2017-02-25] MEDS ORDERED: CMP/10 PO (18:27)
[2017-02-25] MEDS ORDERED: ROPI0.5T PO (18:27)
[2017-02-25] MEDS ORDERED: LEVE1TAB27 PO (18:27)
[2017-02-25] MEDS ORDERED: VALS-58 PO (18:27)
[2017-02-25] MEDS ORDERED: CTF50 PO (18:27)
[2017-02-25] MEDS ORDERED: ARTIFICIAL TEARS OP OINT 3.5 GM TUBE OP ONE (19:45)
[2017-02-25 20:08] VITALS: BP 125/77; PULSE 65; O2SAT 96
--- NOTE | 2017-02-25 20:28 | EMERGENCY ROOM VISIT NOTE ---
History First contact with patient: 18:05 Chief Complaint: EYE ASSESSMENT Stated Complaint: R EYE INJURY History of Present Illness The patient is a 46 year old male who presents to the Emergency Room with complaints of a foreign body sensation in the right eye. The patient reports that he was mowing grass on his riding lawnmower when he felt something in the eye. The patient reports that the pain has progressively worsened with excess tearing, blurred vision and photosensitivity. The patient rates his discomfort an 8 out of 10. Tetanus immunization is up-to-date. The patient reports that he was wearing safety glasses while mowing. Review of Systems 10 system review was performed and was negative except for pertinent positives and negatives as indicated in history of present illness Past Medical/Surgical History Medical Problems: (1) ASTHMA, UNSPECIFIED (2) BIPOLAR DISORDER, UNSPECIFIED (3) Epilepsy (4) HTN (hypertension) (5) Sinus pause (6) Syncope Family History FH: heart disease FH: kidney disease Social History Smoking Status: Former Smoker Alcohol Use: none Drug Use: none Marital Status: Housing Status: lives with family Occupation Status: employed Current/Historical Medications Scheduled Cyclosporine (Ophth) (Restasis), 1 DROP OPB BID Hydrochlorothiazide (Hydrochlorothiazide), 25 MG PO QAM Lamotrigine (Lamotrigine Er), 300 MG PO BID Levetiracetam (Levetiracetam Er), 750 MG PO BID Ropinirole Hydrochloride (Requip), 0.5 MG PO HS Valsartan (Valsartan), 160 MG PO QAM Venlafaxine Hcl (Effexor Extended Rel), 75 MG PO HS Scheduled PRN Diclofenac Potassium (Diclofenac Potassium), 50 MG PO Q8H PRN for Headache Ondansetron (Ondansetron HCl), 4-8 MG PO TID PRN for Nausea Prochlorperazine Maleate (Prochlorperazine Maleate), 10 MG PO Q6H PRN for Nausea /Migraine Symptoms Physical Exam Vital Signs Date Time Temp Pulse Resp B/P (MAP) Pulse Ox O2 Delivery O2 Flow Rate FiO2 02/25/17 19:47 65 14 125/77 96 Room Air 02/25/17 17:59 36.7 82 18 124/71 95 Room Air Right Eye Acuity: 20/40 (Affected) Left Eye Acuity: 20/25 Physical Exam CONSTITUTIONAL: Healthy and well nourished. Alert and oriented X 3 with positive affect. Patient appears in mild discomfort. HEENT: Normocephalic, atraumatic. Pupils equal, round and reactive. Examination of the right eye does not show any conjunctival injection, subconjunctival hemorrhage or bloody/purulent drainage. EOMs intact without discomfort. NECK: Full active range of motion without discomfort. RESPIRATORY: Clear to auscultation bilaterally with no wheezing, crackles, rhonchi or stridor. INTEGUMENTARY: No rash or other significant dermatologic conditions noted. No other periorbital trauma noted. NEUROLOGIC: No focal neurologic deficits noted. Medical Decision & Procedures Medications Administered Medications (Trade) Dose Ordered Sig/Magnus Route Start Time Stop Time Status Last Admin Dose Admin Artificial Tears (Lacri-Lube Oph Oint) 1 appln NOW ONCE OP 02/25/17 19:45 02/25/17 19:46 DC 02/25/17 20:08 1 APPLN Procedure Slit lamp and fluorescein exam were performed after applying 2 drops of proparacaine in the right eye. This completely resolved the patient's discomfort. Slit lamp exam does not show any obvious foreign body, hyphema or conjunctival injury. Lower and upper eyelids were everted to show no evidence for retained foreign bodies. Slit exam shows positive skate rink sign with multiple small abrasions. At this point, Donald lens irrigation was performed for suspected loose foreign body within the eye. ED Course Patient history and physical exam were performed. Nurse's notes were reviewed. Vital signs were reviewed and were normal. Visual acuity was also reviewed. Slit lamp and fluorescein exam shows evidence for very small abrasions to the cornea, suspicious for a small foreign body in the eye. No foreign debris was noted under the upper or lower eyelids. Donald lens irrigation was then performed. The patient was dispensed Lacri-Lube ointment, and encouraged to enter mentally apply a cool compress to the eye. Ibuprofen and Tylenol as needed for pain. The patient was instructed to follow-up with an manager mining (Dr. Parsons) if symptoms are not significantly improving within the next 24 hours. He may also return to the emergency department as needed. The patient voiced understanding of all discharge instructions, and denied any discomfort at the conclusion of my exam. Medical Decision Medication Reconcilliation Current Medication List: was personally reviewed by me Blood Pressure Screening Patient's blood pressure: Normal blood pressure Impression Primary Impression: Right corneal abrasion Departure Information Referrals Anthony Flores Jr,D.O. (PCP) Patient Instructions [facility] Problem Qualifiers Primary Impression: Right corneal abrasion Encounter type: initial encounter Qualified Codes: S05.01XA - Injury of conjunctiva and corneal abrasion without foreign body, right eye, initial encounter
== END 2017-02-25 20:08 | disposition home or self-care (01) ==
LOC: C.EDB 17:44 → C.EDD 20:08
DX: S05.01XA Injury of conjunctiva and corneal abrasion without foreign body, right eye, initial encounter (principal); Y93.H9 Activity, other involving exterior property and land maintenance, building and construction; X58.XXXA Exposure to other specified factors, initial encounter; J45.909 Unspecified asthma, uncomplicated; F31.9 Bipolar disorder, unspecified; G40.909 Epilepsy, unspecified, not intractable, without status epilepticus; I10 Essential (primary) hypertension; Z84.1 Family history of disorders of kidney and ureter; Z87.891 Personal history of nicotine dependence; Z79.899 Other long term (current) drug therapy

== ENCOUNTER 2017-06-21 20:42 | Emergency (ER) | payer BC, OTHER ==
[~2017-06-21] VITALS: Ht 185.4 cm; Wt 146.6 kg
[~2017-06-21 20:42] MED LIST changes: +CMP/10 PO; +CTF50 PO; +CYCL0.052 OPB; +EFFSR75 PO; +HYDR25TA5 PO; -IBUP-1277 PO; -LAMO150T32 PO; +LAMO1TAB79 PO; +LEVE1TAB27 PO; -LEVE750T PO; +ONDA4TAB9 PO; -PRVHFAIN INH; +ROPI0.5T PO; -RQP25 PO; +VALS-58 PO; -VALS160T58 PO
[2017-06-21 20:52] VITALS: TEMP 36.9; Ht 185.4 cm; Wt 146.6 kg
--- NOTE | 2017-06-21 21:50 | DIAGNOSTIC IMAGING REPORT ---
R HAND MIN 3 VIEWS ROUTINE, L HAND MIN 3 VIEWS ROUTINE HISTORY: 46 years-old Male r/o injury right hand acute bilateral hand pain status post trauma. Pain is most pronounced within the third, fourth and fifth digits bilaterally COMPARISON: None available TECHNIQUE: 3 views of the bilateral hands for a total of 6 images FINDINGS: RIGHT: Mild radiocarpal, triscaphe, interphalangeal and first carpometacarpal osteoarthritis. No acute fracture or dislocation. Mild dorsal hand soft tissue swelling. LEFT: Mild radiocarpal, triscaphe, interphalangeal and first carpometacarpal osteoarthritis. No acute fracture or dislocation. Soft tissues are unremarkable. IMPRESSION: Mild degenerative changes bilaterally without acute fracture or dislocation. The above report was generated using voice recognition software. It may contain grammatical, syntax or spelling errors. Electronically signed by: Carson Angelo M.D. 06/21/2017 9:49 PM Dictated Date/Time: 06/21/2017 9:46 PM
[2017-06-21 23:08] VITALS: BP 125/76; PULSE 75; O2SAT 95
--- NOTE | 2017-06-23 00:03 | EMERGENCY ROOM VISIT NOTE ---
ED Visit Note First contact with patient: 20:55 Chief Complaint: I smashed my left hand. History of Present Illness: Mr. Keyes is a 46-year-old white male who ambulates into the ED accompanied by his complaining of left hand pain over the middle, ring and little fingers and right hand pain over the second and third fingers. Patient reports approximately one hour before he arrived in the emergency department he was using a pick to break up ground at his house. He was holding the pick and reports he hit a brick causing the handle of the pick to smash the fingers on his left and right hand. Patient reports since the injury he has been having a throbbing pain over the left middle, ring and little fingers and the right index and middle finger. He reports his pain is much more on the left hand than the right hand. He describes his discomfort as a throbbing. He rates his discomfort 4/10. His pain worsens with movement of the PIP and DIP joint of the left fingers as well as palpation and only palpation of the right fingers. He has not taken a medication for pain prior to arrival at the hospital. Associated with his pain he reports on the left hand he is having numbness and tingling through the associated fingers. He denies any elbow pain, forearm pain, wrist pain, other hand pain, any previous significant injuries or surgeries to the hands. Review of Systems: As noted above in history of present illness. Past Medical History: Hypertension, unspecified urinary problems, seizure disorder. Current Medications: Medications Dose Route/Sig Max Daily Dose Days Date Category Dose Instructions Hydrochlorothiazide 25 Mg Tab 25 Mg PO QAM 02/25/17 Reported Valsartan 160 Mg Tab 160 Mg PO QAM 02/25/17 Reported Requip (Ropinirole Hydrochloride) 0.5 Mg Tab 0.5 Mg PO HS 02/25/17 Reported TAKE THIS MEDICATION 30 MINUTES BEFORE BEDTIME Diclofenac Potassium 50 Mg Tab 50 Mg PO Q8H PRN 02/25/17 Reported Prochlorperazine Maleate 10 Mg Tab 10 Mg PO Q6H PRN 02/25/17 Reported Levetiracetam Er (Levetiracetam) 750 Mg Tab 750 Mg PO BID 02/25/17 Reported Lamotrigine Er (Lamotrigine) 300 Mg Tab 300 Mg PO BID 02/25/17 Reported Ondansetron HCl (Ondansetron) 4 Mg Tab 4-8 Mg PO TID PRN 11/30/16 Reported Restasis (Cyclosporine (Ophth)) 0.05 % Emu 1 Drop OPB BID 11/30/16 Reported Effexor Extended Rel (Venlafaxine Hcl) 75 Mg Capcr 75 Mg PO HS 11/30/16 Reported TAKE THIS MEDICATION WITH FOOD Allergies to Medications: Promethazine, valproic acid. Social History: Patient is currently employed; he feels safe in his home environment; he denies tobacco and alcohol use. Physical Examination: Vital Signs: Date Time Temp Pulse Resp B/P (MAP) Pulse Ox O2 Delivery O2 Flow Rate FiO2 06/21/17 23:08 75 16 125/76 95 06/21/17 20:52 36.9 82 20 118/78 97 Room Air GENERAL: 46-year-old male in mild to moderate distress due to pain, nontoxic- appearing, afebrile and hemodynamically stable. NEUROLOGICAL: Awake, alert and oriented to person, place and time. Answering questions appropriately and following commands. LEFT HAND: No gross bony deformity. Moderate tenderness over the middle, ring and little fingers extending from the PIP distally to the distal phalanx. There is mild swelling of the fingers in this location. I do not appreciate any bony deformity or crepitus. He reports the fingers are numb but he was able to distinguish light sensations. He refused to do range of motion exercises at the PIP and DIP joints due to pain. I do not appreciate any laxity within these joints. Skin was warm and pink and capillary refill was brisk. RIGHT HAND: No gross bony deformities. Mild tenderness over the second and third fingers extending from the PIP distally to the distal phalanx. Minimal swelling within the fingers at this location. I do not appreciate any bony deformity or crepitus. He has full range of motion in flexion and extension of the PIP and DIP joints in these fingers. Throughout the hand the skin was warm and pink and capillary refill is brisk. He is able to distinguish light sensations through all dermatomes. ED Course: Patient is assessed as noted above. Patient's medication list was reviewed. Patient was offered pain medication and refused a did except and ice bag. Right Hand X-Rays: Were read by myself and the radiologist showing no acute fractures or dislocations. Radiologist does note mild degenerative changes. Left Hand X-Rays: Were read by myself and the radiologist and shows no acute fractures or dislocations. Once again radiologist notes mild degenerative changes. Patient's fingers were splinted in position of comfort. Patient was educated about today's findings and instructed on his treatment plan ; he verbalized understanding and agreement with this plan. Clinical Impression: Bilateral finger pain. Decision-Making: Initially my differential diagnosis I considered contusions, fractures, dislocations and other causes. Disposition: Patient discharged home in stable condition accompanied by his ; prior to departure he was reassessed and subjectively reported he was feeling better. Plan: Patient was encouraged to alternate ibuprofen and acetaminophen as needed for pain every 3 hours. Patient was encouraged use ice on areas of pain and swelling. Patient was encouraged to stay and splints for 3-6 days or until pain free. Patient is encouraged to follow-up with orthopedic physician if no better in 7- 10 days. Patient is encouraged return ED for worsening/uncontrolled pain, uncontrolled swelling, finger weakness/numbness/tingling or any new/concerning symptoms.
== END 2017-06-21 23:06 | disposition home or self-care (01) ==
LOC: C.EDB 20:42 → C.EDD 23:06
DX: M79.645 Pain in left finger(s) (principal); W22.8XXA Striking against or struck by other objects, initial encounter; Y92.018 Other place in single-family (private) house as the place of occurrence of the external cause; I10 Essential (primary) hypertension; G40.909 Epilepsy, unspecified, not intractable, without status epilepticus

== ENCOUNTER → 2017-07-16 | Outpatient (CLI) | payer BC, OTHER ==
--- NOTE | 2017-07-16 10:37 | DIAGNOSTIC IMAGING REPORT ---
CERVICAL WITHOUT CONTRAST HISTORY: Cervical pain. Radiculopathy. CERVICAL PAIN TECHNIQUE: Multiplanar multisequence MRI of the cervical spine was performed without the use of contrast. COMPARISON STUDY: None FINDINGS: Signal characteristics of the vertebral bodies are unremarkable. There is moderate disc desiccation throughout the entire cervical region. Posterior bulging disc components are seen from C3 through C6 based on the sagittal images. C2-C3: No significant central canal or neural foraminal narrowing. C3-C4: Central bulging disc showing no significant and/or only minimal impact with anterior cervical cord. Neural foramina patent bilaterally. C4-C5: Broad-based disc herniation with moderate impact anterior cervical cord. Moderate narrowing of the right and to lesser extent left neural foramina. C5-C6: Broad-based disc herniation with rather significant impact upon the right anterior and central cervical cord. Moderate narrowing of the neuroforamina bilaterally. C6-C7: No significant central canal or neural foraminal narrowing. C7-T1: No significant central canal or neural foraminal narrowing. IMPRESSION: 1. Prominent right central disc herniation C5-C6. 2. Mild disc herniation C4-C5. 3. Central bulging disc C3-C4. The above report was generated using voice recognition software. It may contain grammatical, syntax or spelling errors. Electronically signed by: Saeed Rabago M.D. 07/16/2017 10:36 AM Dictated Date/Time: 07/16/2017 10:32 AM
== END | disposition home or self-care (01) ==
LOC: C.MRI 09:35
DX: M50.10 Cervical disc disorder with radiculopathy, unspecified cervical region (principal); M50.21 Other cervical disc displacement, high cervical region; M50.222 Other cervical disc displacement at C5-C6 level

== ENCOUNTER 2017-09-06 21:13 | Emergency (ER) | payer BC, OTHER ==
[~2017-09-06] VITALS: Ht 185.4 cm; Wt 143.4 kg
[2017-09-06 21:17] VITALS: BP 135/85; TEMP 36.5; Ht 185.4 cm; Wt 143.4 kg
[2017-09-06] MEDS ORDERED: LAMO1TAB75 PO (21:37)
[2017-09-06] MEDS ORDERED: ROPI1TAB29 PO (21:37)
--- NOTE | 2017-09-06 22:31 | DIAGNOSTIC IMAGING REPORT ---
RIGHT KNEE 3 VIEWS HISTORY: R knee pain pop going down stairs today COMPARISON: None. FINDINGS: There is no fracture or dislocation. Soft tissues are unremarkable. No radiopaque foreign bodies. Mild patellofemoral osteoarthritis. No significant knee effusion. IMPRESSION: No fractures. Mild patellofemoral osteoarthritis. Electronically signed by: Melecio Stein M.D. 09/06/2017 10:30 PM Dictated Date/Time: 09/06/2017 10:28 PM
[2017-09-06] MEDS ORDERED: IBUPROFEN 200 MG TAB PO STA (22:44)
[2017-09-06] MEDS ORDERED: OXYCODONE/ACETAMINOPHEN 5-325 TAB PO STA (22:44)
[2017-09-06] MEDS ORDERED: PERCOCET HOME PACK PO ONE (22:45)
--- NOTE | 2017-09-06 22:48 | EMERGENCY ROOM VISIT NOTE ---
ED Visit Note First contact with patient: 21:32 CHIEF COMPLAINT: knee pain HISTORY OF PRESENT ILLNESS: This 47-year-old male patient presents to the emergency department a few hours after sustaining an injury to the right knee when walking down the steps. He planted on the knee and twisted. He felt a pop. He has had difficulty with weightbearing since. He has fairly good flexion and extension of the knee. No numbness or tingling. He denies any other injuries. He has not taken anything for pain. He has had pain in this knee for quite some time.. REVIEW OF SYSTEMS: A 6 system review of systems was completed with positives and pertinent negatives listed in the HPI. ALLERGIES: Promethazine, Topamax, valproic acid MEDICATIONS: Reviewed PMH: Seizure disorder, hypertension SOCIAL HISTORY: Denies tobacco use, occasional EtOH. PHYSICAL EXAM: Vital Signs: Reviewed Nurse's notes, vital signs stable. GENERAL : 47-year-old male, no acute distress, but appears in pain, well-developed, well -nourished. MENTAL STATUS: Alert, oriented to person place and time, and cooperative. MUSCULOSKELETAL: The right knee is minimally swollen. There is no ecchymosis. There is no joint effusion present. The patient is tender over the medial aspect of the knee. There is no joint line tenderness. The patella does not subluxate. Range of motion is close to full. Strength of the quads and hamstrings is 5/5. Manuela's is negative. Yogi's and Anterior Drawer tests are negative. There is pain with valgus stress . The foot and toes are warm and well-perfused. Dorsalis pedis pulse 2+. Sensation to pain and light touch is intact. Capillary refill less than 2 seconds. EMERGENCY DEPARTMENT COURSE: I examined the patient. X-rays of the right knee were reviewed IMPRESSION: No fractures. Mild patellofemoral osteoarthritis. The patient was medicated with Percocet and Motrin. The patient was placed in a knee immobilizer under my direction and the position was satisfactory. He has crutches at home. The patient was discharged home in good condition. DIAGNOSIS: Right knee injury DISCHARGE INSTRUCTIONS: Ice and elevate knee for swelling and pain. Wear knee immobilizer when up and about. Use crutches - minimal weight on foot. Please call the orthopedic doctor in the morning for a follow-up appointment. Ibuprofen 600 mg every 6 hours Percocet 1-2 tabs every 4 hours for severe pain. Do not drink alcohol or drive while taking this medication. This may be taken with ibuprofen, but avoid Tylenol. Do not hesitate to return to the emergency department with any new, worsening or concerning symptoms. This chart was completed in part utilizing [employer] Speech Voice Recognition software. Attempts were made to minimize the grammatical errors, random word insertions, pronoun errors and incomplete sentences. Any formal questions or concerns about the content, text or information contained within the body of this dictation should be directly addressed to the provider for clarification.
[2017-09-06] MEDS ORDERED: OXYC-57 PO (22:49)
[2017-09-06 23:03] VITALS: PULSE 73; O2SAT 96
== END 2017-09-06 23:04 | disposition home or self-care (01) ==
LOC: C.EDB 21:13 → C.EDD 23:04
DX: S89.91XA Unspecified injury of right lower leg, initial encounter (principal); G40.909 Epilepsy, unspecified, not intractable, without status epilepticus; I10 Essential (primary) hypertension; X50.1XXA Overexertion from prolonged static or awkward postures, initial encounter

== ENCOUNTER 2017-12-12 20:58 | Emergency (ER) | payer BC, OTHER ==
[~2017-12-12] VITALS: Ht 185.4 cm; Wt 153.2 kg
[~2017-12-12 20:58] MED LIST changes: -CMP/10 PO; +OXYC-57 PO; -ROPI0.5T PO
[2017-12-12 21:01] VITALS: TEMP 36.9; Ht 185.4 cm; Wt 153.2 kg
[2017-12-12] MEDS ORDERED: ROPI1TAB29 PO (21:37)
[2017-12-12] MEDS ORDERED: LAMO1TAB75 PO (21:37)
[2017-12-12 21:42] VITALS: O2SAT 95
[2017-12-12] MEDS ORDERED: VENL37.593 PO (22:05)
[2017-12-12] MEDS ORDERED: VLT50 PO (22:05)
--- NOTE | 2017-12-12 22:46 | DIAGNOSTIC IMAGING REPORT ---
R VENOUS DOPP LOWER EXT UNILAT CLINICAL HISTORY: 47 years-old Male presenting with right calf pain. TECHNIQUE: Real-time grayscale and color and spectral Doppler ultrasound imaging of the veins of the right lower extremity was performed. Compression and augmentation were also utilized. COMPARISON: None. FINDINGS: Right: Common femoral vein: Patent. Greater saphenous vein: Patent. Deep femoral vein: Patent. Femoral vein: Patent. Popliteal vein: Patent. Calf veins: Patent. Other: At the site of clinical interest in the lateral right calf, varicose superficial vein noted. This does not demonstrate internal thrombus. Slight subcutaneous fat and skin thickening. IMPRESSION: 1. No evidence of deep venous thrombosis. 2. Soft tissue swelling and a patent superficial varicose vein at the site of clinical interest. Electronically signed by: Julien Arias M.D. 12/12/2017 10:44 PM Dictated Date/Time: 12/12/2017 10:43 PM
[2017-12-13 00:21] VITALS: BP 121/62; PULSE 69; O2SAT 96
--- NOTE | 2017-12-13 04:33 | EMERGENCY ROOM VISIT NOTE ---
History First contact with patient: 21:23 Chief Complaint: LEG PAIN,LEG INJURY Stated Complaint: LOWER RT LEG PAIN History of Present Illness The patient is a 47 year old male who presents to the Emergency Room with complaints of right lower leg pain and discomfort for the past few days. He described as aching, ranging in severity 5 out of 10 worse with palpation and better with rest. Patient supposed to have knee surgery next week. He does have varicose veins. Patient denies history of DVT, PE, trauma to the calf. Patient denies recent travel or tobacco use. No family history of blood clots. Patient denies chest pain, dyspnea, fever, chills, numbness, tingling, radiating pain. Review of Systems An 10 system review of systems was completed with positives and pertinent negatives listed in the HPI. Past Medical/Surgical History Medical Problems: (1) ASTHMA, UNSPECIFIED (2) BIPOLAR DISORDER, UNSPECIFIED (3) Epilepsy (4) HTN (hypertension) (5) Sinus pause (6) Syncope Family History FH: heart disease FH: kidney disease Social History Smoking Status: Never Smoker Alcohol Use: none Drug Use: none Marital Status: Housing Status: lives with family Occupation Status: employed Current/Historical Medications Scheduled Cyclosporine (Ophth) (Restasis), 1 DROP OPB BID Hydrochlorothiazide (Hydrochlorothiazide), 25 MG PO QAM Lamotrigine (Lamotrigine Er), 300 MG PO AMHS Lamotrigine (Lamotrigine Er), 50 MG PO HS Levetiracetam (Levetiracetam Er), 750 MG PO BID Ropinirole HCl (Ropinirole HCl), 1 MG PO QPM Valsartan (Valsartan), 160 MG PO QAM Venlafaxine Hcl (Effexor Extended Rel), 75 MG PO HS Venlafaxine Hcl (Venlafaxine Extended Rel), 37.5 MG PO HS Scheduled PRN Diclofenac Sod (Diclofenac Sodium Dr), 50 MG PO Q8 PRN for Headache Ondansetron (Ondansetron HCl), 4-8 MG PO TID PRN for Nausea Physical Exam Vital Signs Date Time Temp Pulse Resp B/P (MAP) Pulse Ox O2 Delivery O2 Flow Rate FiO2 12/13/17 00:21 69 18 121/62 96 12/12/17 22:46 76 118/70 95 Room Air 12/12/17 21:48 85 12/12/17 21:42 95 Room Air 12/12/17 21:01 36.9 85 18 145/82 95 Room Air Physical Exam VITALS: Vitals are noted on the nurse's note and reviewed by myself. Vital signs stable. GENERAL: Pleasant male, in no acute distress, nondiaphoretic, well-developed well-nourished. SKIN: Capillary reflex less than 2 seconds. HEENT: Normocephalic. PERRLA. EOMI. Nares patent. Mucous membranes moist. Neck is supple without nuchal rigidity. HEART: Regular rate and rhythm without murmurs gallops or rubs. LUNGS: Clear to auscultation bilaterally without wheezes, rales or rhonchi. No retractions or accessory muscle use. ABDOMEN: Positive bowel sounds x 4. Normal tympanic percussion. Soft, nontender, without masses or organomegaly. Suárez sign negative. No guarding or rebound tenderness. MUSCULOSKELETAL: No gross musculoskeletal defects. No pedal edema. Minimal right calf tenderness. Varicose veins present in bilateral legs. NEURO: Patient was alert and oriented to person place and time. Normal sensation to light and sharp touch. No focal neurological deficits. Medical Decision & Procedures ED Course Prior records reviewed and summarized above. Triage Nursing notes reviewed. Additional history obtained from the family. The patient's history was concerning for swelling and pain in the leg. Differential diagnosis: Etiologies such as DVT, musculoskeletal, infection, joint effusion, trauma, lymphedema, idiopathic, CHF, as well as others were entertained.. Physical examination: The physical examination revealed no signs of infection. Neurovascularly intact. ER treatment provided: Patient was observed On reassessment the patient felt better. Diagnostics interpreted by me: Patient declined lab testing. He has a phobia of needles. Imaging studies: R VENOUS DOPP LOWER EXT UNILAT CLINICAL HISTORY: 47 years-old Male presenting with right calf pain. TECHNIQUE: Real-time grayscale and color and spectral Doppler ultrasound imaging of the veins of the right lower extremity was performed. Compression and augmentation were also utilized. COMPARISON: None. FINDINGS: Right: Common femoral vein: Patent. Greater saphenous vein: Patent. Deep femoral vein: Patent. Femoral vein: Patent. Popliteal vein: Patent. Calf veins: Patent. Other: At the site of clinical interest in the lateral right calf, varicose superficial vein noted. This does not demonstrate internal thrombus. Slight subcutaneous fat and skin thickening. IMPRESSION: 1. No evidence of deep venous thrombosis. 2. Soft tissue swelling and a patent superficial varicose vein at the site of clinical interest. Electronically signed by: Julien Arias M.D. This appears to be consistent with calf pain discomfort most likely from varicose vein. Patient had no DVT. He was neurovascularly and neurologically intact. He declined laboratory testing. I felt this is reasonable. He is advised to follow-up family can a few days here in the ER sooner for severe pain , numbness, tingling, worsening signs or symptoms or as needed. By the evaluation outlined above emergent etiologies such as DVT, septic joint, trauma , infection, CHF, as well as others were deemed relatively unlikely. The pt informed about the findings as listed above. All questions were answered and pleased with the treatment. Return instructions were outlined and the patient was discharged in stable condition. Referral: The patient was referred back to their primary care physician for follow-up in 2 to 3 days for a recheck of the current condition. The chart was completed utilizing [employer] Speech voice recognition software. Grammatical errors, random word insertions, pronoun errors, and incomplete sentences are an occassional consequence of this system due to software limitations, ambient noise, and hardware issues. Any formal questions or concerns about the content, text, or information contained within the body of this dictation should be directly addressed to the physician sound assistant for clarification. Medical Decision As above Medication Reconcilliation Current Medication List: was personally reviewed by me Blood Pressure Screening Patient's blood pressure: Normal blood pressure Impression Primary Impression: Varicose vein of leg Departure Information Dispostion Home / Self-Care Condition GOOD Forms HOME CARE DOCUMENTATION FORM, IMPORTANT VISIT INFORMATION Patient Instructions Veins Spider Varicose, My [facility] Additional Instructions Ibuprofen(Motrin, Advil) may be used for fever or pain. Use 600mg every six hours as needed. Take with food. Avoid using more than 2400mg in a 24 hour period. Do not use 2400mg per day for more than three consecutive days without physician direction. Prolonged inappropriate use can lead to stomach upset or ulcers. (AND/OR) Acetaminophen(Tylenol) may be used for fever or pain. Use 1000mg every six hours as needed. Avoid using more than 3000mg in a 24 hour period. Rest and drink plenty of fluids as tolerated. Continue current medications. Avoid strenuous activities and anything that worsens your pain. Resume normal activities once your symptoms resolve. Return to the ER immediately for worsening or persistent leg pain, abdominal pain, vomiting, fevers, chest pains, difficulty breathing, worsening of your condition, or as needed. Follow up with your primary physician in 2-3 days for a recheck of your current condition.
== END 2017-12-13 00:21 | disposition home or self-care (01) ==
LOC: C.EDB 20:59 → C.EDA 12-13 00:21
DX: I83.811 Varicose veins of right lower extremity with pain (principal); J44.9 Chronic obstructive pulmonary disease, unspecified; I10 Essential (primary) hypertension; F31.9 Bipolar disorder, unspecified; G40.909 Epilepsy, unspecified, not intractable, without status epilepticus; Z79.899 Other long term (current) drug therapy

== ENCOUNTER → 2018-03-30 | Day surgery (SDC) | payer BC, OTHER ==
[2018-03-23 11:37] VITALS: BMI 44.0
[2018-03-25 13:12] VITALS: BMI 44.0
--- NOTE | 2018-03-25 13:19 | PAT Medication Instructions ---
Service Date Mar 25, 2018. Current Home Medication List Yrkkgesseh-Hrzyunispuwct-Bipqj (Esgic 325/50/40MG), 1 CAP PO for prn Cyclosporine (Ophth) (Restasis), 1 DROP OPB BID Diclofenac Sod (Diclofenac Sodium Dr), 50 MG PO Q8 PRN for Headache Hydrochlorothiazide (Hydrochlorothiazide), 25 MG PO QAM Ibuprofen (Motrin), 800 MG PO Q8H PRN for Pain Lamotrigine (Lamotrigine Er), 300 MG PO BID Lamotrigine (Lamotrigine Er), 50 MG PO HS Levetiracetam (Levetiracetam Er), 750 MG PO BID Ondansetron (Ondansetron HCl), 4-8 MG PO TID PRN for Nausea Ropinirole HCl (Ropinirole HCl), 1.5 MG PO HS Valsartan (Valsartan), 160 MG PO QAM Venlafaxine Hcl (Effexor Extended Rel), 75 MG PO HS Medication Instructions For Your Scheduled Surgery -Instructions per surgeon: Diclofenac Sod (Diclofenac Sodium Dr), 50 MG PO Q8 PRN for Headache Ibuprofen (Motrin), 800 MG PO Q8H PRN for Pain - Hold the following medications 24 hours prior to surgery--DO NOT TAKE THE NIGHT BEFORE SURGERY: Ropinirole HCl (Ropinirole HCl), 1.5 MG PO HS - Hold the following medications the morning of surgery: Gecgcbfumv-Jvslfkdkirjxp-Gzrmo (Esgic 325/50/40MG), 1 CAP PO for prn Hydrochlorothiazide (Hydrochlorothiazide), 25 MG PO QAM Valsartan (Valsartan), 160 MG PO QAM - Take the following medications the morning of surgery with a sip of water: Cyclosporine (Ophth) (Restasis), 1 DROP OPB BID Lamotrigine (Lamotrigine Er), 300 MG PO BID Levetiracetam (Levetiracetam Er), 750 MG PO BID Ondansetron (Ondansetron HCl), 4-8 MG PO TID PRN for Nausea (if needed) - Take the following medications as scheduled the evening before surgery: Qpxmitrorb-Rtebfqossoyem-Womor (Esgic 325/50/40MG), 1 CAP PO for prn (if needed) Cyclosporine (Ophth) (Restasis), 1 DROP OPB BID Lamotrigine (Lamotrigine Er), 300 MG PO BID Lamotrigine (Lamotrigine Er), 50 MG PO HS Levetiracetam (Levetiracetam Er), 750 MG PO BID Ondansetron (Ondansetron HCl), 4-8 MG PO TID PRN for Nausea (if needed) Venlafaxine Hcl (Effexor Extended Rel), 75 MG PO HS If you have any questions please call us at [phone] or [phone] or [phone]
--- NOTE | 2018-03-25 14:12 | DIAGNOSTIC IMAGING REPORT ---
CHEST 2 VIEWS ROUTINE HISTORY: Preop. COMPARISON: Chest 11/30/2016. FINDINGS: The heart remains mildly enlarged. The lungs are clear. No pleural effusions. No pneumothorax. IMPRESSION: Stable mild cardiomegaly. Electronically signed by: Melecio Stein M.D. 03/25/2018 2:11 PM Dictated Date/Time: 03/25/2018 2:09 PM
[2018-03-25 14:39] LABS: BASO % 0.2 %; BASO ABS # 0.02 K/uL (0-0.2); EOS % 0.1 %; EOS ABS # 0.01 K/uL (0-0.5); HEMOGLOBIN 14.6 g/dL (14.0-18.0); IG# 0.04 K/uL (0.00-0.02); LYMPH % 19.3 %; LYMPH ABS # 2.29 K/uL (1.2-3.4); MEAN CORPUSCULAR HEMOGLOBIN 30.9 pg (25-34); MEAN CORPUSCULAR HGB CONC 34.8 g/dl (32-36); MEAN PLATELET VOLUME 9.5 fL (7.4-10.4); MONO % 9.4 %; MONO ABS # 1.12 K/uL (0.11-0.59); NEUT % 70.7 %; NEUT ABS # 8.39 K/uL (1.4-6.5); PLATELET COUNT 223 K/uL (130-400); RED CELL DISTRIBUTION WIDTH SD 42.4 fL (36.4-46.3); WHITE BLOOD COUNT 11.87 K/uL (4.8-10.8)
[2018-03-25 14:43] LABS: PTT PATIENT 27.3 SECONDS (21.0-31.0)
[2018-03-25 15:06] LABS: CALCIUM 8.9 mg/dl (8.5-10.1); CREATININE 0.97 mg/dl (0.60-1.40); POTASSIUM 3.9 mmol/L (3.5-5.1)
--- NOTE | 2018-03-26 13:03 | HISTORY & PHYSICAL EXAMINATION ---
DATE OF ADMISSION: 03/30/2018 CHIEF COMPLAINT: Right knee pain. HISTORY OF PRESENT ILLNESS: Chantale is a 47-year-old male with right knee pain since August of this year. The patient rates his pain as 5/10. He has pain with his daily activities. He has limited standing and walking tolerance. The patient has tried anti-inflammatories. MRI revealed a medial meniscal tear. He has been wearing a brace without relief and is now scheduled for a right knee arthroscopy. The patient was scheduled previously, but was rescheduled due to authorization issues. PAST MEDICAL HISTORY: Epilepsy with last seizure 3 years ago, hypertension, PVCs, heart murmur, history of migraines. He denies heart disease, diabetes or DVT. PAST SURGICAL HISTORY: Vasectomy. SOCIAL HISTORY: The patient denies alcohol or tobacco use. He lives in a 2-story home. He is and is currently working as a teacher. FAMILY HISTORY: Negative for DVT. MEDICATIONS: Lamictal 300 mg daily, Keppra 750 mg b.i.d., valsartan 60 mg 3 times daily, venlafaxine 75 mg 3 times daily, Requip 0.25 mg 3 times daily, hydrochlorothiazide 12.5 mg daily, amitriptyline 25 mg, levetiracetam ER 750 mg b.i.d. ALLERGIES: DEPAKOTE AND TOPAMAX. REVIEW OF SYSTEMS: See HPI. Ten other systems reviewed, all negative. PHYSICAL EXAMINATION: VITAL SIGNS: Height 6 feet 1 inch, weight 331 pounds, BMI 44. GENERAL: This is a well-developed, well-nourished male who is alert and oriented x3. Mood and affect are appropriate. HEENT: Normocephalic, atraumatic. Mucous membranes are moist and intact. NECK: Supple without lymphadenopathy. HEART: Regular rate and rhythm with a systolic murmur noted. LUNGS: Clear to auscultation without wheezes or rhonchi. ABDOMEN: Soft and nontender. Bowel sounds are equal and active. EXTREMITIES: No ecchymosis, redness or warmth. He has +1 distal edema. He has moderate effusion. Range of motion is from 0-100 degrees. He is neurovascularly intact with non-medial laxity. IMPRESSION: Medial meniscal tear, right knee. PLAN: The patient will be admitted for a right knee arthroscopy at [facility] with Dr. Duran. He will be discharged home after surgery.
[~2018-03-30] VITALS: Ht 185.4 cm; Wt 153.1 kg
[~2018-03-30] MED LIST changes: +ATROPINE SULFATE 0.1 MG/ML 5ML SYR IV PRN; +BUPIVACAINE/EPINEPHRINE 0.5% MPF 1:200,000 30 ML VIAL ONE; +BUTACAP10 PO; +CEFAZOLIN 3000MG IV PUSH 22.5 ML IV SCH; -CTF50 PO; +DEXAMETHASONE SOD INJ 4 MG/ML VIAL ONE; +FENTANYL CITRATE INJ 50 MCG/1 ML 2 ML VIAL ONE; +IBUP-1428 PO; +KETOROLAC TROMETHAMINE 30 MG/ML VIAL IV. PRN; +LABETALOL HCL IV 5 MG/ML 20ML IV PRN; +LACTATED RINGER'S 1000ML 1,000 ML IV SCH; +LAMO1TAB75 PO; +LIDOCAINE HCL 2% 2 ML VIAL (20MG/ML) ONE; +MIDAZOLAM HCL 1 MG/ML 2ML VIAL ONE; +MoRPHine SULFATE 2 MG/ML CARP IV PRN; +ONDANSETRON INJ 2 MG/ML 2 ML VIAL IV PRN; +ONDANSETRON INJ 2 MG/ML 2 ML VIAL ONE; +PROPOFOL IV EMULSION 10 MG/ML 20 ML VIAL ONE; +RQP1 PO; +VLT50 PO
[2018-03-30 12:38] VITALS: BP 139/69; PULSE 60; TEMP 36.7; O2SAT 98; Ht 185.4 cm; Wt 153.1 kg
--- NOTE | 2018-03-30 12:51 | History & Physical Bridge Note ---
H&P Re-Evaluation Bridge Note: I have examined the patient, reviewed the History & Physical and in the interval since the performance of the History & Physical I have noted the following changes of clinical significance: No changes noted
--- NOTE | 2018-03-30 14:32 | [facility] Post Operative Brief Note ---
Immediate Operative Summary Operative Date Mar 30, 2018. Pre-Operative Diagnosis Right knee pain Post-Operative Diagnosis Same as preop Procedure(s) Performed Arthroscopy right knee, partial medial and lateral meniscectomy. medial femoral and patella femoral chondroplasty. Surgeon Dr. Bogdan Duran Electric Serviceman Surgeon(s) none Estimated Blood Loss 2ml Findings Consistent with Post-Op Diagnosis Specimens None Drains None Anesthesia Type General Complication(s) none Disposition Disposition: Recovery Room / PACU
--- NOTE | 2018-03-30 14:34 | [facility] Operative Report ---
Operative Report Operative Date Mar 30, 2018. Pre-Operative Diagnosis Right knee pain Post-Operative Diagnosis Same as preop Procedure(s) Performed Arthroscopy right knee, partial medial and lateral meniscectomy. medial femoral and patella femoral chondroplasty. Surgeon Dr. Bogdan Duran Quarry Extraction Worker Surgeon(s) none Estimated Blood Loss 2ml Findings Patient presents with complaints of ongoing pain to his right knees examination consistent with medial joint line lateral joint line pain to circumduction findings noted MRI scan of a complex tear posterior horn medial meniscus complex tear posterior horn lateral meniscus additional findings time surgery will be as of grade 3 and 4 chondral lesion of the medial femoral condyle measuring 1 x 2 cm grade 3 and 4 chondral lesion of the trochlea measuring 2 x 2 centimeters complexes were performed Specimens None Drains None Anesthesia Type General Complication(s) none Disposition Recovery Room / PACU Indications Patient presents today for knee arthroscopy after failing attempts at conservative management clinic physical therapy anti-inflammatories relative rest activity modification with positive MRI composite clinical findings is that of medial joint line pain tenderness lateral joint line tenderness positive circumduction Liliana findings no evidence of ligamentous laxity was noted time surgery above findings were noted. Description of Procedure After proper prepping and draping the right lower extremity or scopic examination began utilizing medial lateral parapatellar portals are scop examination involving the anterior compartment and subsequent medial compartment will be also a complex tear the posterior horn the medial meniscus subsequent partial posterior horn medial meniscectomy was performed there is no be evidence of grade 3 and 4 chondral lesion measuring 1 x 1 cm involving the medial femoral condyle chondroplasty back to stable margin was performed operating room and was removed no other tibial chondral pathology was noted the anterior posterior cruciate ligaments were visualized and probed noted to be intact lateral meniscus visualized protuberance with tear involving the posterior horn associated with a partial posterior horn medial and lateral meniscectomies performed back to stable margin of the greater mild region move patellofemoral trochlear region was evaluated with grade 3 and 4 chondral lesion measuring 1 x 2 cm involving the trochlea chondroplasty performed back to stable margin recommend we remove skin portals were closed with 4-0 nylon injection 20 cc of half percent plain Marcaine was injected into the knee joint skin portals closed with 4-0 nylon sterile compressive dressing was placed patient was taken recovery in stable condition operative report dictated by Roger. I attest to the content of the Intraoperative Record and any orders documented therein. Any exceptions are noted below.
[2018-03-30] MEDS: FENTANYL CITRATE INJ 50 MCG/1 ML 2 ML VIAL IV PRN ×3 (14:44→15:04)
--- NOTE | 2018-03-30 14:48 | Discharge Instructions ---
Discharge Instructions Date of Service Mar 30, 2018. Visit Reason for Visit: Right Knee Medial & Lateral Meniscus Tears Discharge Discharge Diagnosis / Problem: Right Knee Meniscal Tears Discharge Goals Goal(s): Decrease discomfort, Improve function Activity Recommendations Activity Limitations: per Instructions/Follow-up section Weightbearing Status: Right weightbearing (as tolerated) Anesthesia . Post Anesthesia Instructions: If you have had General Anesthesia or IV Sedation: * Do not drive today. * Resume driving when surgeon permits. * Do not make important decisions or sign legal documents today. * Call surgeon for: 1. Temperature elevations greater than 101 degrees F. 2. Uncontrollable pain. 3. Excessive bleeding. 4. Persistent nausea and vomiting. 5. Medication intolerance (nausea, vomiting or rash). * For nausea and vomiting use only clear liquids such as: tea, soda, bouillon until nausea subsides, then gradually increase diet as tolerated. * If you have any concerns or questions, call your surgeon's office. If physician is unavailable and it is an emergency, call 911 or go to the nearest emergency room. . Instructions / Follow-Up Instructions / Follow-Up ACTIVITY RECOMMENDATIONS: * You may walk on the leg with or without crutches as comfort permits. * Bending of the knee should start at once. * Do not shower for 48 hours following surgery. SPECIAL CARE INSTRUCTIONS: * You may cleanse the skin adjacent to the small wounds with soap and water at the time of the first dressing change. * The application of an ice bag to the front and sides of the knee will decrease swelling and discomfort for the first 48 hours. * The small incisions may be sore and develop bruising. This bruising does not require any special care. SPECIAL PRECAUTIONS: * If you experience unusual pain unrelieved by prescriptions, temperature elevation (100 degrees F. or above) or progressive swelling or bleeding, you should contact our office at for further evaluation. * You may have been prescribed pain medication. If you experience nausea and/or fine skin rash, discontinue this medication and contact our office at for an alternate medication. DRESSING: * Dressing should be comfortable and absorb any leakage of fluid and/or blood. * The dressing may become moist or bloodstained. * Dressing may be removed 48 hours after surgery and bandaids placed over the small surgical incisions. If can be removed sooner if it becomes very soiled or loose. * Bandaids may be used over next several days as needed and can be discontinued when there is not further drainage from the wounds. FOLLOW UP VISIT: If appointment is not already scheduled: Please call [facility] to make a follow-up appointment for your surgery at . Diet Recommendations Recommended Home Diet: resume previous diet Procedures Procedures Performed: Arthroscopy right knee, partial medial and lateral meniscectomy. medial femoral and patella femoral chondroplasty. Pending Studies Studies pending at discharge: no Medical Emergencies . Who to Call and When: Medical Emergencies: If at any time you feel your situation is an emergency, please call 911 immediately. . Non-Emergent Contact Non-Emergency issues call your: Surgeon Call Non-Emergent contact if: temperature is above 101.5, your pain is not controlled, your pain is worsening, wound has increased drainage, wound has increased redness . . "Provider Documentation" section prepared by Bob Foster. . [place] Drug Monitoring Program Search Results: patient reviewed within database, no issues identified
--- NOTE | 2018-03-30 15:21 | Anesthesiology Progress Note ---
Anesthesia Post Op Note Date & Time Mar 30, 2018 at 15:21 Vital Signs Pain Intensity: 4.0 Vital Signs Past 12 Hours Date Time Temp Pulse Resp B/P (MAP) Pulse Ox O2 Delivery O2 Flow Rate FiO2 03/30/18 15:15 36.3 66 18 125/75 96 Room Air 03/30/18 15:05 72 20 134/76 96 Room Air 03/30/18 14:55 70 19 127/75 96 Room Air 03/30/18 14:45 73 17 122/65 96 Room Air 03/30/18 14:36 36.5 72 21 122/55 96 Oxymask 10 03/30/18 12:38 36.7 60 20 139/69 (92) 98 Room Air Notes Mental Status: alert / awake / arousable, participated in evaluation Pt Amnestic to Procedure: Yes Nausea / Vomiting: adequately controlled Pain: adequately controlled Airway Patency, RR, SpO2: stable & adequate BP & HR: stable & adequate Hydration State: stable & adequate Anesthetic Complications: no major complications apparent
[2018-03-30 15:30] VITALS: BP 126/75; PULSE 66; TEMP 36.5; O2SAT 98
[2018-03-30 16:00] VITALS: BP 116/76; PULSE 71; TEMP 36.5; O2SAT 98
== END | disposition home or self-care (01) ==
LOC: C.ACU 12:01
PROVIDERS: ATTEND Orthopaedic Surgery
DX: S83.231A Complex tear of medial meniscus, current injury, right knee, initial encounter (principal); S83.271A Complex tear of lateral meniscus, current injury, right knee, initial encounter; G40.909 Epilepsy, unspecified, not intractable, without status epilepticus; I10 Essential (primary) hypertension; Z79.899 Other long term (current) drug therapy; E66.01 Morbid (severe) obesity due to excess calories; Z68.41 Body mass index [BMI] 40.0-44.9, adult; Z87.891 Personal history of nicotine dependence; X58.XXXA Exposure to other specified factors, initial encounter